=== PATIENT | female | born 1990 | race Hispanic/Latino ===

== ENCOUNTER 2016-08-15 16:17 | Inpatient (IN) | payer BC, MEDICAID ==
[2016-08-15] MEDS ORDERED: Sodium Chloride 0.9% 1,000 ML ONE (16:47)
[2016-08-15] MEDS ORDERED: HYDROmorphone 1 mg/ml ISec ONE (17:08)
[2016-08-15] MEDS ORDERED: HYDROmorphone 1 mg/ml ISec IVP STA (17:15)
[2016-08-15] MEDS ORDERED: Sodium Chloride 0.9% 1,000 ML IV ONE (17:17)
[2016-08-15 17:37] LABS: BASO # 0.1 K/uL (0.0-0.2); BASO % 0.7 % (0.0-2.0); EOS # 0.2 K/uL (0.0-0.7); EOS % 1.9 % (0.0-4.0); LYMPH # 2.3 K/uL (1.0-4.3); LYMPH % 26.6 % (20.0-40.0); MEAN CELL VOLUME 82.8 fL (81.0-99.0); MEAN CORPUSCULAR HEMOGLOBIN 27.4 pg (27.0-31.0); MEAN PLATELET VOLUME 10.2 fL (7.2-11.7); MONO # 1.1 K/uL (0.0-0.8); MONO % 12.4 % (0.0-10.0); NEUT # 5.1 K/uL (1.8-7.0); NEUT % 58.4 % (50.0-75.0); RBC 4.74 Mil/uL (3.80-5.20); RED CELL DISTRIBUTION WIDTH 11.8 % (11.5-14.5); WHITE BLOOD COUNT 8.7 K/uL (4.8-10.8)
[2016-08-15 17:44] LABS: ALBUMIN 3.7 g/dL (3.5-5.0)
[2016-08-15 17:47] LABS: AST/SGOT 60 U/L (14-36); GFR AFRICAN-AMERICAN > 60; GFR NON-AFRICAN AMERICAN > 60
[2016-08-15 17:48] LABS: ALB/GLOB RATIO 1.3 (1.0-2.1); ALT/SGPT 48 U/L (9-52); BLOOD UREA NITROGEN 12 mg/dL (7-17); LIPASE 83 U/L (23-300)
[2016-08-15 17:52] LABS: HCG,QUALITATIVE URINE NEGATIVE (NEGATIVE)
[2016-08-15 18:12] LABS: SQUAMOUS EPITHIAL 1 /hpf (0-5); URINE BACTERIA RARE (<OCC); URINE BILIRUBIN NEGATIVE (NEGATIVE); URINE BLOOD NEGATIVE (NEGATIVE); URINE CALCIUM OXALATE CRYSTALS FEW /hpf (<OCC); URINE CLARITY Hazy (Clear); URINE COLOR Yellow (YELLOW); URINE GLUCOSE (UA) NORMAL (Normal); URINE LEUKOCYTE ESTERASE NEG Leu/uL (Negative); URINE NITRATE NEGATIVE (NEGATIVE); URINE PROTEIN NEGATIVE (NEGATIVE); URINE UROBILINOGEN NORMAL mg/dL (0.2-1.0)
--- NOTE | 2016-08-15 18:16 | C.PDOC ---
History Of Present Illness 26 y/o female presents to the ED for evaluation of right upper quadrant abdominal pain which began 1 day ago. Patient rates her pain as 10/10 in severity and notes her symptoms are associated with nausea and vomiting. Patient reports a history of gallstones, but states she never underwent an operation. She denies fever, chills, diarrhea. Time Seen by Provider: 08/15/16 16:59 Chief Complaint (Nursing): Abdominal Pain History Per: Patient History/Exam Limitations: no limitations Onset/Duration Of Symptoms: Days Current Symptoms Are (Timing): Still Present Severity: Severe Pain Scale Rating Of: 10 Location Of Pain/Discomfort: RUQ Radiation Of Pain To:: None Quality Of Discomfort: "Pain" Associated Symptoms: Nausea, Vomiting. denies: Fever, Chills, Diarrhea Additional History Per: Patient Abnormal Vaginal Bleeding: No Past Medical History Reviewed: Historical Data, Nursing Documentation, Vital Signs Vital Signs: Last Vital Signs Temp 97.8 F 08/15/16 16:41 Pulse 88 08/15/16 16:41 Resp 20 08/15/16 16:41 BP 154/86 H 08/15/16 16:41 Pulse Ox 100 08/15/16 18:52 - Medical History PMH: No Chronic Diseases Surgical History: No Surg Hx Family History: States: Unknown Family Hx - Social History Hx Alcohol Use: Yes Hx Substance Use: No Review Of Systems Constitutional: Negative for: Fever, Chills Gastrointestinal: Positive for: Nausea, Vomiting, Abdominal Pain (right upper quadrant ). Negative for: Diarrhea Physical Exam - Physical Exam Appears: Non-toxic, No Acute Distress Skin: Normal Color, Warm, Dry Head: Atraumatic, Normacephalic Eye(s): bilateral: Normal Inspection, PERRL, EOMI Oral Mucosa: Moist Neck: Supple Chest: Symmetrical, No Deformity, No Tenderness Cardiovascular: Rhythm Regular, No Friction Rub, No Murmur Respiratory: Normal Breath Sounds, No Rales, No Rhonchi, No Wheezing Gastrointestinal/Abdominal: Soft, Tenderness (to right upper quadrant on palpation ), No Guarding, No Rebound, Other (+Mahan's sign ) Back: Normal Inspection, No Vertebral Tenderness, No Paraspinal Tenderness Extremity: Normal ROM, Capillary Refill (less than 2 seconds ) Neurological/Psych: Normal Speech, Normal Cognition, Normal Motor Gait: Steady ED Course And Treatment - Laboratory Results Result Diagrams: 08/15/16 17:20 08/15/16 17:20 O2 Sat by Pulse Oximetry: 100 (on RA) Pulse Ox Interpretation: Normal - CT Scan/US US Abdomen Other Rad Studies (CT/US): Interpreted By Me, Read By Radiologist, Radiology Report Reviewed CT/US Interpretation: Accession No. : [id number]. Patient Name / ID : NEGRA CAMERON / [id number]. Exam Date : 08/15/2016 18:05:37 ( Approved ). Study Comment : Sex / Age : F / [id number]. Creator : SUAD STEELE MD. Dictator : SUAD STEELE MD. Ballet Master/Mistress : Plant And Maintenance Technician : SUAD STEELE MD. Approver2 : Report Date : 08/15/2016 18:33:04. My Comment : . HISTORY: RUQ pain, hx of gallstones. COMPARISON: None. TECHNIQUE: Grayscale imaging was performed. FINDINGS: LIVER: Measures 16.5 cm in length. There is diffuse increased echogenicity of the liver parenchyma. No mass. No intrahepatic bile duct dilatation. GALLBLADDER: There are multiple gallstones. No evidence of wall thickening, pericholecystic fluid or positive sonographic Mahan's sign. There is gallbladder sludge. COMMON BILE DUCT: Measures 5.7 mm. No stones. There is mild diffuse dilatation of the common bile duct. PANCREAS: Unremarkable as visualized. No mass. No ductal dilatation. RIGHT KIDNEY: Measures 11.1 cm in length. Normal echogenicity. No calculus, mass, or hydronephrosis. AORTA: No aneurysmal dilatation. IVC: Unremarkable. OTHER FINDINGS: None . IMPRESSION : 1. Cholelithiasis. Mild dilatation of the common bile duct. No evidence of choledocholithiasis. 2. Mild hepatomegaly. Diffuse increased echogenicity in the liver may reflect hepatic steatosis however parenchymal infectious/ inflammatory etiologies cannot be entirely excluded. Clinical and laboratory correlation is advised. Medical Decision Making Medical Decision Making: Plan: * labs * Abdomen US * Dilaudid IV * Toradol IV * Zofran IV * IV Fluids * reassess and disposition Progress: labs, Abdomen US ordered and reviewed. Patient received Toradol IV, Zofran IV, and IV Fluids. Patient continues to have pain. Dilaudid ordered. On third re- exam, the patient still has pain. Abdomen with mild RUQ. The case was discussed with Dr. Denny who agrees to admit the patient. Disposition - Disposition Disposition: HOSPITALIZED Disposition Time: 19:09 Condition: FAIR - Clinical Impression Clinical Impression: Biliary colic, Intractable abdominal pain - PA / PROFESSOR OF FOOD BIOCHEMISTRY / Resident Statement MD/DO has reviewed & agrees with the documentation as recorded. - Scribe Statement The provider has reviewed the documentation as recorded by the Scribe (Estephanie Theodore) All medical record entries made by the Scribe were at my direction and personally dictated by me. I have reviewed the chart and agree that the record accurately reflects my personal performance of the history, physical exam, medical decision making, and the department course for this patient. I have also personally directed, reviewed, and agree with the discharge instructions and disposition.
--- NOTE | 2016-08-15 18:35 | US ---
HISTORY: RUQ pain, hx of gallstones COMPARISON: None. TECHNIQUE: Grayscale imaging was performed. FINDINGS: LIVER: Measures 16.5 cm in length. There is diffuse increased echogenicity of the liver parenchyma. No mass. No intrahepatic bile duct dilatation. GALLBLADDER: There are multiple gallstones. No evidence of wall thickening, pericholecystic fluid or positive sonographic Mahan's sign. There is gallbladder sludge. COMMON BILE DUCT: Measures 5.7 mm. No stones. There is mild diffuse dilatation of the common bile duct. PANCREAS: Unremarkable as visualized. No mass. No ductal dilatation. RIGHT KIDNEY: Measures 11.1 cm in length. Normal echogenicity. No calculus, mass, or hydronephrosis. AORTA: No aneurysmal dilatation. IVC: Unremarkable. OTHER FINDINGS: None . IMPRESSION: 1. Cholelithiasis. Mild dilatation of the common bile duct. No evidence of choledocholithiasis. 2. Mild hepatomegaly. Diffuse increased echogenicity in the liver may reflect hepatic steatosis however parenchymal infectious/ inflammatory etiologies cannot be entirely excluded. Clinical and laboratory correlation is advised.
[2016-08-15] MEDS ORDERED: HYDROmorphone 1 mg/ml ISec IVP PRN (20:14)
[2016-08-15] MEDS ORDERED: Potassium Chl 40 mEq in D5-1/2 1,000 ML IV SCH (20:30)
--- NOTE | 2016-08-15 21:18 | CP.PCM.HP ---
History of Present Illness - History of Present Illness History of Present Illness: H&P for Dr. Denny CC: RUQ abdominal pain, nausea, vomiting Patient is 26F with PMH of cholelithiasis with cholecystitis and no PSH who presented to the ER with 3 days of RUQ abdominal pain, nausea, and vomiting. Patient states that she first had a similar episode 2.5 years ago when she was diagnosed with cholelithiasis. Patient stated that she controlled the cholelithiasis with diet modifications but recently she has been having worse, more frequent episodes of pain and nausea. Patient states that the end of last week she began having pain and on Monday the pain severely worsened and was associated with nausea and nb/nb emesis. Patient states that the pain is a constant ache with intermittent colic pain. Pain has spread to her epigastrium, substernal, and in between her shoulder blades on her back. Patient states that the pain is worse with eating food and is associated with greasy diarrhea. Patient denies any hematochezia, melena, dysuria, hematuria, palpitations, tachycardia, pain radiating to her jaw, SOB, or tachypnea. Patient states that she is recovering from a viral respiratory infection but that she underwent an ECHO and doppler of both lower extremities in her hometown of [place], which all were normal, per patient. Patient received toradol and dilaudid in the ED with helped, but did not resolve her pain, but anti-emetics resolved her nausea Abd US: gall stones, without wall thickening, pericholecystic fluid, negative petty's, CBD 5.7mm LFT's: wnl except for AST of 60 PMH: cholelithiasis PSH: none ALL: NKDA Present on Admission - Present on Admission Any Indicators Present on Admission: No Review of Systems - Review of Systems All systems: reviewed and no additional remarkable complaints except (as per HPI ) - Constitutional Constitutional: absent: Chills, Fever, Night Sweats - Cardiovascular Cardiovascular: As Per HPI, Chest Pain, Leg Edema. absent: Irregular Heart Rhythm, Pain Radiating to Arm/Neck/Jaw - Respiratory Respiratory: absent: Cough, Dyspnea, Chest Congestion - Gastrointestinal Gastrointestinal: As Per HPI, Abdominal Pain, Diarrhea, Nausea, Vomiting. absent: Constipation, Hematemesis, Hematochezia, Melena - Genitourinary Genitourinary: As Per HPI. absent: Difficulty Urinating, Dysuria, Hematuria - Musculoskeletal Musculoskeletal: Back Pain. absent: Numbness, Tingling - Neurological Neurological: absent: Numbness, Tingling, Weakness Past Patient History - Past Medical History & Family History Past Medical History?: Yes Pertinent Family History: father: gallstones - Past Social History Smoking Status: Never Smoked - GASTROINTESTINAL Hx Gall Bladder Disease: Yes (cholelithiasis) - PSYCHIATRIC Hx Substance Use: No - SURGICAL HISTORY Hx Surgeries: No Meds Allergies/Adverse Reactions: Allergies Allergy/AdvReac Type Severity Reaction Status Date / Time No Known Allergies Allergy Verified 08/15/16 17:13 Physical Exam - Constitutional Appears: Well, Non-toxic - Head Exam Head Exam: ATRAUMATIC, NORMOCEPHALIC - Eye Exam Eye Exam: Normal appearance. absent: Conjunctival injection, Scleral icterus - ENT Exam ENT Exam: Mucous Membranes Moist, Normal Oropharynx - Respiratory Exam Respiratory Exam: NORMAL BREATHING PATTERN. absent: Accessory Muscle Use, Respiratory Distress - Cardiovascular Exam Cardiovascular Exam: RRR - GI/Abdominal Exam GI & Abdominal Exam: Soft, Tenderness (RUQ tenderness to palpation). absent: Distended, Guarding, Rebound Additional comments: positive petty's sign - Extremities Exam Extremities exam: Positive for: pedal edema (1+ pitting edema BL), pedal pulses present. Negative for: calf tenderness - Neurological Exam Neurological exam: Alert, Oriented x3 - Psychiatric Exam Psychiatric exam: Normal Affect, Normal Mood - Skin Skin Exam: Dry, Intact, Normal Color, Warm Results - Vital Signs Recent Vital Signs: Last Vital Signs Temp 98.0 F 08/15/16 20:07 Pulse 104 H 08/15/16 20:07 Resp 18 08/15/16 20:07 BP 148/81 08/15/16 20:07 Pulse Ox 100 08/15/16 20:07 - Labs Result Diagrams: 08/15/16 17:20 08/15/16 17:20 - Imaging and Cardiology US - abdomen Status: Image reviewed by me, Report reviewed by me Assessment & Plan - Assessment and Plan (Free Text) Assessment: 26F with PMH of cholelithiasis for 2.5 years with acute RUQ pain, nausea and vomiting US: cholelithiasis, no sign of cholecystitis, CBD 5.7mm LFT's: AST 60, otherwise WNL, no leukocytosis Plan: -OR in AM for lap cholecystectomy -NPO after midnight -AM CMP and CBC -IVF with KCl replenishing -anti-emetics, analgesics, GI ppx, SCD's Discussed with Dr. Eduin Henderson, PGY2
[2016-08-15] MEDS ORDERED: Pneumococcal 23-Valent Vaccine IM ONE (23:35)
[2016-08-16] MEDS: Potassium Ch 20mEq in D5-1/2NS 1,000 ML IV SCH ×3 (03:47→16:00)
[2016-08-16 07:21] LABS: BASO % 0.7 % (0.0-2.0); EOS # 0.2 K/uL (0.0-0.7); EOS % 3.8 % (0.0-4.0); LYMPH # 1.5 K/uL (1.0-4.3); LYMPH % 28.8 % (20.0-40.0); MEAN CELL VOLUME 83.1 fL (81.0-99.0); MEAN CORPUSCULAR HEMOGLOBIN 27.5 pg (27.0-31.0); MEAN CORPUSCULAR HGB CONC 33.2 g/dL (33.0-37.0); MEAN PLATELET VOLUME 9.6 fL (7.2-11.7); MONO # 0.8 K/uL (0.0-0.8); MONO % 14.9 % (0.0-10.0); NEUT # 2.7 K/uL (1.8-7.0); NEUT % 51.8 % (50.0-75.0); RBC 4.34 Mil/uL (3.80-5.20); RED CELL DISTRIBUTION WIDTH 11.9 % (11.5-14.5); WHITE BLOOD COUNT 5.1 K/uL (4.8-10.8)
[2016-08-16 07:26] LABS: INR 1.3; PROTHROMBIN TIME 14.2 SECONDS (9.7-12.2)
[2016-08-16 07:42] LABS: ALBUMIN 2.9 g/dL (3.5-5.0)
[2016-08-16 07:45] LABS: ALB/GLOB RATIO 1.1 (1.0-2.1); ALT/SGPT 142 U/L (9-52); AST/SGOT 95 U/L (14-36); BLOOD UREA NITROGEN 10 mg/dL (7-17); GFR AFRICAN-AMERICAN > 60; GFR NON-AFRICAN AMERICAN > 60
[2016-08-16 07:46] LABS: CALCIUM 8.8 mg/dl (8.6-10.4)
--- NOTE | 2016-08-16 09:23 | RAD ---
HISTORY: pre-op eval, chest pain COMPARISON: No prior. FINDINGS: LUNGS: No active pulmonary disease. PLEURA: No significant pleural effusion identified, no pneumothorax apparent. CARDIOVASCULAR: Normal. OSSEOUS STRUCTURES: No significant abnormalities. VISUALIZED UPPER ABDOMEN: Normal. OTHER FINDINGS: None. IMPRESSION: No active disease.
[2016-08-16] MEDS ORDERED: Pneumococcal 23-Valent Vaccine IM ONE ×2 (10:00→12:00)
[2016-08-16] MEDS ORDERED: Propofol 10 mg/ml Inj (20 ML) ONE ×2 (11:08→12:20)
[2016-08-16] MEDS ORDERED: Midazolam 2 MG/2 ML VIAL ONE (11:08)
[2016-08-16] MEDS ORDERED: Neostigmine Methylsulfate 3mg/3ml Syringe IV ONE (11:09)
[2016-08-16] MEDS ORDERED: Rocuronium 10 mg/ml (5 ml) ONE ×2 (11:09)
[2016-08-16] MEDS ORDERED: ceFAZolin IV 1 gm in Dextrose 1 GM/50 ML BAG IVPB ONE (11:26)
[2016-08-16] MEDS ORDERED: HYDROmorphone 0.5 mg/0.5 ml ISec IVP PRN (12:03)
[2016-08-16] MEDS ORDERED: Morphine 4 MG/ML VIAL ONE (12:22)
[2016-08-16] MEDS ORDERED: Lactated Ringer's 1,000 ML IV ONE (12:30)
--- NOTE | 2016-08-16 12:32 | PCM.SURG1 ---
Surgeon's Initial Post Op Note - Surgeon's Notes Surgeon: Dr. Denny Civil Engineering Professional: Dr. Field PGY3 Type of Anesthesia: General Endo Pre-Operative Diagnosis: acute cholecystitis Operative Findings: see op report Post-Operative Diagnosis: same Operation Performed: laparoscopic cholecystectomy Specimen/Specimens Removed: gallbladder Estimated Blood Loss: EBL {In ML}: 10 Blood Products Given: N/A Drains Used: No Drains Post-Op Condition: Good Date of Surgery/Procedure: 08/16/16 Time of Surgery/Procedure: 12:32
[2016-08-16] MEDS ORDERED: Oxycodone/Acetaminophen 5/325 mg Tab PO PRN (12:33)
[2016-08-16] MEDS: Oxycodone/Acetaminophen 5/325 mg Tab PO PRN ×2 (16:30→22:14)
[2016-08-16 17:05] VITALS: RESP 20
[2016-08-17] MEDS: Potassium Ch 20mEq in D5-1/2NS 1,000 ML IV SCH (00:52)
[2016-08-17 08:28] LABS: BASO % 0.5 % (0.0-2.0); EOS # 0.2 K/uL (0.0-0.7); EOS % 2.7 % (0.0-4.0); HEMOGLOBIN 11.6 g/dL (11.0-16.0); LYMPH # 1.7 K/uL (1.0-4.3); LYMPH % 20.9 % (20.0-40.0); MEAN CELL VOLUME 82.7 fL (81.0-99.0); MEAN CORPUSCULAR HEMOGLOBIN 28.1 pg (27.0-31.0); MEAN PLATELET VOLUME 9.8 fL (7.2-11.7); MONO # 1.3 K/uL (0.0-0.8); MONO % 16.3 % (0.0-10.0); NEUT # 4.7 K/uL (1.8-7.0); NEUT % 59.6 % (50.0-75.0); RBC 4.13 Mil/uL (3.80-5.20); RED CELL DISTRIBUTION WIDTH 12.2 % (11.5-14.5)
[2016-08-17 08:29] LABS: WHITE BLOOD COUNT 7.9 K/uL (4.8-10.8)
[2016-08-17 09:03] LABS: ALB/GLOB RATIO 1.2 (1.0-2.1); AST/SGOT 49 U/L (14-36); GFR AFRICAN-AMERICAN > 60; GFR NON-AFRICAN AMERICAN > 60
[2016-08-17 09:04] LABS: ALT/SGPT 115 U/L (9-52); BLOOD UREA NITROGEN 6 mg/dL (7-17); CALCIUM 8.7 mg/dl (8.6-10.4)
[2016-08-17] MEDS ORDERED: Pneumococcal 23-Valent Vaccine IM ONE (10:00)
[2016-08-17 10:47] VITALS: BP 124/75; PULSE 103; TEMP 98.4; O2SAT 97
[2016-08-17] MEDS ORDERED: Pantoprazole 40 mg EC Tab PO SCH (11:15)
--- NOTE | 2016-08-17 13:09 | CP.PCM.DIS ---
Provider - Provider Date of Admission: 08/15/16 18:57 Attending physician: Patricia Denny MD Primary care physician: None Consults: None Time Spent in preparation of Discharge (in minutes): 60 Diagnosis - Discharge Diagnosis (1) Cholecystitis, acute with cholelithiasis Status: Acute Hospital Course - Lab Results Lab Results: Most Recent Lab Values WBC 7.9 K/uL (4.8-10.8) D 08/17/16 08:19 RBC 4.13 Mil/uL (3.80-5.20) 08/17/16 08:19 Hgb 11.6 g/dL (11.0-16.0) 08/17/16 08:19 Hct 34.2 % (34.0-47.0) 08/17/16 08:19 MCV 82.7 fL (81.0-99.0) 08/17/16 08:19 MCH 28.1 pg (27.0-31.0) 08/17/16 08:19 MCHC 34.0 g/dL (33.0-37.0) 08/17/16 08:19 RDW 12.2 % (11.5-14.5) 08/17/16 08:19 Plt Count 237 K/uL (130-400) 08/17/16 08:19 MPV 9.8 fL (7.2-11.7) 08/17/16 08:19 Neut % (Auto) 59.6 % (50.0-75.0) 08/17/16 08:19 Lymph % (Auto) 20.9 % (20.0-40.0) 08/17/16 08:19 [place] % (Auto) 16.3 % (0.0-10.0) H 08/17/16 08:19 Eos % (Auto) 2.7 % (0.0-4.0) 08/17/16 08:19 Baso % (Auto) 0.5 % (0.0-2.0) 08/17/16 08:19 Neut # 4.7 K/uL (1.8-7.0) 08/17/16 08:19 Lymph # 1.7 K/uL (1.0-4.3) 08/17/16 08:19 [place] # 1.3 K/uL (0.0-0.8) H 08/17/16 08:19 Eos # 0.2 K/uL (0.0-0.7) 08/17/16 08:19 Baso # 0.0 K/uL (0.0-0.2) 08/17/16 08:19 PT 14.2 SECONDS (9.7-12.2) H 08/16/16 07:09 INR 1.3 08/16/16 07:09 APTT 30 SECONDS (21-34) 08/16/16 07:09 Sodium 137 mmol/L (132-148) 08/17/16 08:19 Potassium 3.7 mmol/L (3.6-5.2) 08/17/16 08:19 Chloride 107 mmol/L (98-107) 08/17/16 08:19 Carbon Dioxide 22 mmol/L (22-30) 08/17/16 08:19 Anion Gap 13 (10-20) 08/17/16 08:19 BUN 6 mg/dL (7-17) L 08/17/16 08:19 Creatinine 0.5 MG/DL (0.7-1.2) L 08/17/16 08:19 Est GFR ( Amer) > 60 08/17/16 08:19 Est GFR (Non-Af Amer) > 60 08/17/16 08:19 Random Glucose 97 mg/dL (65-105) 08/17/16 08:19 Calcium 8.7 mg/dl (8.6-10.4) 08/17/16 08:19 Total Bilirubin 0.8 mg/dL (0.2-1.3) 08/17/16 08:19 AST 49 U/L (14-36) H D 08/17/16 08:19 ALT 115 U/L (9-52) H 08/17/16 08:19 Alkaline Phosphatase 64 U/L (38-126) 08/17/16 08:19 Total Protein 5.5 g/dL (6.3-8.3) L 08/17/16 08:19 Albumin 3.0 g/dL (3.5-5.0) L 08/17/16 08:19 Globulin 2.6 gm/dL (2.2-3.9) 08/17/16 08:19 Albumin/Globulin Ratio 1.2 (1.0-2.1) 08/17/16 08:19 Lipase 83 U/L (23-300) 08/15/16 17:20 Urine Color Yellow (YELLOW) 08/15/16 17:20 Urine Clarity Hazy (Clear) 08/15/16 17:20 Urine pH 5.0 (5.0-8.0) 08/15/16 17:20 Ur Specific [place] 1.023 (1.003-1.030) 08/15/16 17:20 Urine Protein Negative mg/dL (NEGATIVE) 08/15/16 17:20 Urine Glucose (UA) Normal mg/dL (Normal) 08/15/16 17:20 Urine Ketones 1+ mg/dL (NEGATIVE) H 08/15/16 17:20 Urine Blood Negative (NEGATIVE) 08/15/16 17:20 Urine Nitrate Negative (NEGATIVE) 08/15/16 17:20 Urine Bilirubin Negative (NEGATIVE) 08/15/16 17:20 Urine Urobilinogen Normal mg/dL (0.2-1.0) 08/15/16 17:20 Ur Leukocyte Esterase Neg Leonidas/uL (Negative) 08/15/16 17:20 Urine WBC (Auto) 1 /hpf (0-5) 08/15/16 17:20 Urine RBC (Auto) 1 /hpf (0-3) 08/15/16 17:20 Ur Squamous Epith Cells 1 /hpf (0-5) 08/15/16 17:20 Calcium Oxalate Crystal Few /hpf (<OCC) H 08/15/16 17:20 Urine Bacteria Rare (<OCC) 08/15/16 17:20 Urine HCG, Qual Negative (NEGATIVE) 08/15/16 17:20 - Hospital Course Hospital Course: 26F admitted to hospital for cholelithiasis w/cholecystitis on 08/15. Patient taken to OR for Laparoscopic cholecystectomy. Patient tolerated procedure well , no complications. Pt stable and ready for discharge home without any pain medications as per patient. - Date & Time of H&P Date of H&P: 08/15/16 Time of H&P: 21:10 Discharge Exam - Head Exam Head Exam: ATRAUMATIC, NORMAL INSPECTION, NORMOCEPHALIC - Eye Exam Eye Exam: EOMI, Normal appearance - ENT Exam ENT Exam: Mucous Membranes Moist, Normal Exam - Neck Exam Neck exam: Full Rom, Normal Inspection - Respiratory Exam Respiratory Exam: Clear to PA & Lateral, NORMAL BREATHING PATTERN, UNREMARKABLE. absent: Wheezes, Respiratory Distress - Cardiovascular Exam Cardiovascular Exam: REGULAR RHYTHM, +S1, +S2 - GI/Abdominal Exam GI & Abdominal Exam: Normal Bowel Sounds, Soft, Tenderness (around incision sites, minimally), Unremarkable. absent: Distended, Firm, Guarding, Hernia, Rebound, Rigid - Extremities Exam Extremities exam: normal inspection - Neurological Exam Neurological exam: Alert, CN II-XII Intact, Oriented x3 - Psychiatric Exam Psychiatric exam: Normal Affect, Normal Mood - Skin Skin Exam: Dry, Intact (surgical sites with glue, no erythema or drainage noted) , Normal Color, Warm Discharge Plan - Follow Up Plan Condition: GOOD Disposition: HOME/ ROUTINE Additional Instructions: Patient is cleared for discharge home as per Dr. Denny. Ok for patient to shower, the surgical wounds have a special glue on them that will fall off on it 's own. Ok to clean surgical sites gently with soap and water. If you have pain at home, ok to take Motrin or Ibuprofen- 400 or 600mg every 8 hours. Avoid lifting heavy items for 4 -6 weeks. Follow up with Dr. Denny in her office in 2 weeks for post op check, unless you are experiencing excessive pain- then you can schedule an appointment sooner. Please return to hospital if you have fevers, chills, pain that is uncontrollable or you have excessive bleeding from surgical sites.
--- NOTE | 2016-08-22 12:59 | CARD ---
APPROVED REPORT EKG Measurement Heart [id number] <Conclusion> Normal sinus rhythm Prolonged QT Abnormal ECG
--- NOTE | 2016-08-25 12:45 | PCM.OP ---
Operative Report - Operative Report Date of Surgery/Procedure: 08/16/16 Time of Surgery/Procedure: 11:30 Surgeon: Dr. Eduin M.D. Trolley Car Operator: Dr. Rashida Dietz Anesthesia/Sedation: General, Dr. Dillard Pre-Operative Diagnosis: Acute cholecystitis Post-Operative Diagnosis: Acute cholecystitis Indication for Surgery: Acute cholecystitis Operative Findings: The gallbladder was identified, it was thickened with pericholecystic fluid although it was not intensely distended. There were also extensive omental adhesions and elevation of the duodenum in [place] towards the peritoneal surface of the gallbladder as well as the lower surface of the liver. Adhesions to the gallbladder were carefully peeled away and the adhesions to the liver were sharply divided allowing the gallbladder fundus to be grasped elevated. The infundibulum was grasped and retracted laterally and the cystic duct was identified and dissected. The cystic duct was viewed anteriorly and posteriorly. The cystic duct was then triply clipped and divided. The cystic artery was identified passing under a large closed node and the cystic artery was also dissected and was triply clipped and divided and the gallbladder was dissected free of the liver bed using electric cautery. The liver bed was edematous consistent with the acute recent inflammation. The liver bed was inspected for hemostasis and the dissection was completed. Procedure/Operation Description: Procedure: Laparoscopic Cholecystectomy. Description of Operation: Patient in the supine position under adequate general anesthesia. The abdomen was prepped and draped in the usual sterile manner. Veress needle puncture was performed at the umbilicus with insufflation to 15 cm water pressure of C02 and a 10mm laparoscopic trocar was inserted via an umbilical incision. Under direct vision additional trocars were inserted in the epigastrium and right costal margin. The gallbladder was placed in a specimen retrieval bag and removed via the umbilical port site it was noted to contain at least two moderate large stones. Right upper quadrant was irrigated and suctioned. The pneumoperitoneum was released and the trocars were removed. The umbilical port side was closed with a figure of 8 facil suture of 0- vicryl. All incisions were closed with 4-0 monocryl subcuticular sutures and steri strips. Dry sterile dressings were applied. Estimated Blood Loss: 10 CCs Complications: The patient tolerated the procedure well. Discharge & Condition: Transferred to the recovery room in stable condition.
== END 2016-08-17 16:35 | disposition home or self-care (01) | DRG 494 ==
LOC: C.ER 16:17 → C.9E 18:57 → C.3T 20:35
PROVIDERS: ADMIT Specialist; ATTEND Specialist
PROC: 0FT44ZZ Resection of Gallbladder, Percutaneous Endoscopic Approach (ICD-10-PCS; principal; 2016-08-16 11:00)
DX: K80.12 Calculus of gallbladder with acute and chronic cholecystitis without obstruction (principal)